=== PATIENT | male | born 1925 | race Caucasian/White ===

== ENCOUNTER 2016-10-15 16:05 | Inpatient (IN) | payer OTHER ==
[~2016-10-15] VITALS: Ht 167.6 cm; Wt 85.0 kg
[2016-10-15 16:22] LABS: EOSINOPHIL (%) 0 % (0-5); HEMATOCRIT 47.3 % (38.0-50.0); IMMATURE GRANULOCYTE (%) 0.9 % (0.0-0.7); IMMATURE GRANULOCYTE COUNT 0.2 K/uL; INSTRUMENT ABS NEUTROPHIL CT 13.8 K/uL; LYMPHOCYTE COUNT 1.1 K/uL (1.0-2.8); MCH 33.3 PG (29.0-34.0); MCV 97.7 FL (86-99); MEAN PLAT.VOLUME 10.4 uM^3 (9.0-12.4); MONOCYTE (%) 10.2 % (3-12); MONOCYTE COUNT 1.7 K/uL (0-0.8); NEUTROPHIL (%) 82.4 % (45-76); NEUTROPHIL COUNT 13.8 K/uL (1.8-6.4); PLATELET COUNT 147 K/uL (156-360); RBC DIS.WIDTH-CV 13.2 % (11.8-14.6); RBC DIS.WIDTH-SD 47.5 % (39-53); RED BLOOD COUNT 4.84 M/uL (4.00-5.50); WHITE BLOOD COUNT 16.7 K/uL (4.1-10.2)
[2016-10-15 16:32] LABS: AMYLASE 21 IU/L (1-118); CHLORIDE 100 mEq/L (99-109); POTASSIUM 3.6 mEq/L (3.7-5.4); SODIUM 140 mEq/L (136-147)
[2016-10-15 16:34] LABS: GLUCOSE 206 mg/dL (70-99)
[2016-10-15 16:35] LABS: ANION GAP 13 MEQ/L (2-14)
[2016-10-15 16:37] LABS: SERUM ETHYL ALCOHOL < 10 mg/dL
[2016-10-15 16:38] LABS: GFR ESTIMATE (CALCULATED) 38 mL/min/; UREA NITROGEN (BUN) 34 mg/dL (9-23)
[2016-10-15 16:41] LABS: LIPASE 9 U/L (1.0-51.0)
[2016-10-15] MEDS ORDERED: FUROSEMIDE40 MG PO (17:41)
[2016-10-15] MEDS ORDERED: WARFARIN SODIUM2 MG PO (17:41)
[2016-10-15] MEDS ORDERED: SIMVASTATIN40 MG PO (17:42)
[2016-10-15] MEDS ORDERED: AMIODARONE HCL200 MG PO (17:42)
[2016-10-15] MEDS ORDERED: ASPIR 8181 M1 PO (17:42)
[2016-10-15] MEDS ORDERED: WARFARIN SODIUM1 MG PO (17:42)
[2016-10-15] MEDS ORDERED: METOPROLOL SUCC25 MG PO (17:42)
[2016-10-15] MEDS ORDERED: GLIPIZIDE XL10 MG PO (17:42)
[2016-10-15 19:00] LABS: INTER. NORMALIZED RATIO 3.2; PROTHROMBIN TIME 36.6 SEC (10.2-12.9)
[2016-10-15 19:17] LABS: TROP-I INTERPRETATION NEGATIVE; TROPONIN-I 0.07 ng/mL (0.0-0.30)
[2016-10-15] MEDS ORDERED: FIBER THERAPY0.52 GM PO (19:22)
[2016-10-15 22:19] VITALS: BP 136/64
[2016-10-15 23:10] LABS: TROP-I INTERPRETATION NEGATIVE; TROPONIN-I 0.18 ng/mL (0.0-0.30)
[2016-10-15 23:48] VITALS: BP 123/62
[2016-10-16 04:29] VITALS: BP 147/72
[2016-10-16 06:44] LABS: HEMATOCRIT 38.5 % (38.0-50.0); MCH 32.8 PG (29.0-34.0); MCV 99.5 FL (86-99); MEAN PLAT.VOLUME 10.5 uM^3 (9.0-12.4); PLATELET COUNT 127 K/uL (156-360); RBC DIS.WIDTH-CV 13.6 % (11.8-14.6); WHITE BLOOD COUNT 13.5 K/uL (4.1-10.2)
[2016-10-16 07:12] LABS: RED BLOOD COUNT 3.87 M/uL (4.00-5.50)
[2016-10-16 07:31] LABS: ANION GAP 10 MEQ/L (2-14); CHLORIDE 104 MEQ/L (99-109); GFR ESTIMATE (CALCULATED) 51 mL/min/; GLUCOSE 139 mg/dL (70-99); POTASSIUM 3.8 MEQ/L (3.7-5.4); SAMPLE HEMOLYSIS CHECK 0; SAMPLE ICTERIC CHECK 0; SAMPLE LIPEMIA CHECK 0; SODIUM 143 MEQ/L (136-147); UREA NITROGEN (BUN) 34 mg/dL (9-23)
[2016-10-16 08:20] VITALS: BP 139/65
[2016-10-16 11:47] LABS: POINT-OF-CARE METER ID UU14117124
[2016-10-16 12:30] VITALS: BP 121/58
[2016-10-16 16:30] VITALS: BP 139/65
[2016-10-16 17:03] LABS: POINT-OF-CARE METER ID UU14117124
[2016-10-16 20:08] VITALS: BP 146/67
[2016-10-16 21:33] LABS: POINT-OF-CARE METER ID UU14117124
[2016-10-16 23:16] LABS: TROP-I INTERPRETATION NEGATIVE; TROPONIN-I 0.07 ng/mL (0.0-0.30)
[2016-10-17] VITALS (7 sets, daily range): BP systolic 109–181; BP diastolic 64–86
[2016-10-17 06:51] LABS: POINT-OF-CARE METER ID UU14117124
[2016-10-17 10:08] LABS: MCH 33.1 PG (29.0-34.0); MCHC 33.2 G/DL (30.0-36.0); MCV 99.7 FL (86-99); MEAN PLAT.VOLUME 10.5 uM^3 (9.0-12.4); PLATELET COUNT 120 K/uL (156-360); RBC DIS.WIDTH-CV 13.3 % (11.8-14.6); RBC DIS.WIDTH-SD 48.4 % (39-53); RED BLOOD COUNT 3.41 M/uL (4.00-5.50); WHITE BLOOD COUNT 10.6 K/uL (4.1-10.2)
[2016-10-17 10:35] LABS: ANION GAP 4 MEQ/L (2-14); CHLORIDE 106 MEQ/L (99-109); Estimated Average Glucose 120 mg/dL (70-123); GFR ESTIMATE (CALCULATED) > 59 mL/min/; GLUCOSE 116 mg/dL (70-99); HEMOGLOBIN A1c (GLYCOHEMOGLOB) 5.8 % HGB (Below 5.7); POTASSIUM 3.8 MEQ/L (3.7-5.4); SAMPLE HEMOLYSIS CHECK 0; SAMPLE ICTERIC CHECK 0; SAMPLE LIPEMIA CHECK 0; SODIUM 142 MEQ/L (136-147); UREA NITROGEN (BUN) 27 mg/dL (9-23)
[2016-10-17 11:55] LABS: POINT-OF-CARE METER ID UU14117124
[2016-10-17 17:09] LABS: POINT-OF-CARE METER ID UU14208753
[2016-10-17 21:50] LABS: POINT-OF-CARE METER ID UU14208753
[2016-10-18 03:57] VITALS: BP 179/83
[2016-10-18 06:33] LABS: POINT-OF-CARE METER ID UU14208753
[2016-10-18 06:40] LABS: HEMATOCRIT 33.7 % (38.0-50.0); MCH 33.9 PG (29.0-34.0); MCHC 34.4 G/DL (30.0-36.0); MCV 98.5 FL (86-99); MEAN PLAT.VOLUME 10.4 uM^3 (9.0-12.4); PLATELET COUNT 135 K/uL (156-360); RBC DIS.WIDTH-CV 13.2 % (11.8-14.6); RBC DIS.WIDTH-SD 47.4 % (39-53); RED BLOOD COUNT 3.42 M/uL (4.00-5.50)
[2016-10-18 07:07] LABS: ANION GAP 8 MEQ/L (2-14); CHLORIDE 106 MEQ/L (99-109); GFR ESTIMATE (CALCULATED) > 59 mL/min/; GLUCOSE 121 mg/dL (70-99); SAMPLE HEMOLYSIS CHECK 0; SAMPLE ICTERIC CHECK 0; SAMPLE LIPEMIA CHECK 0; SODIUM 141 MEQ/L (136-147); UREA NITROGEN (BUN) 25 mg/dL (9-23)
[2016-10-18 08:00] VITALS: BP 194/96
[2016-10-18 11:54] LABS: POINT-OF-CARE METER ID UU14117124
[2016-10-18 12:11] VITALS: BP 132/65
[2016-10-18 15:36] VITALS: BP 148/69
[2016-10-18 19:20] VITALS: BP 114/54
[2016-10-18 23:20] VITALS: BP 111/51
[2016-10-19 02:50] VITALS: BP 119/56
[2016-10-19 06:01] LABS: POINT-OF-CARE METER ID UU14117124
[2016-10-19 08:16] VITALS: BP 122/61
[2016-10-19] MEDS ORDERED: NIFEDIPINE20 MG PO (10:00)
[2016-10-19] MEDS ORDERED: ERGOCALCIF50000 UNIT PO (10:00)
[2016-10-19] MEDS ORDERED: CYANOCOBAL1000 MCG/2 SC (10:01)
[2016-10-19] MEDS ORDERED: CYANOCOBALAM1000 MCG PO (10:02)
[2016-10-19] MEDS ORDERED: FUROSEMIDE40 MG PO (10:03)
[2016-10-19 11:00] VITALS: BP 115/55
== END 2016-10-19 14:33 | DRG 133 ==
LOC: TRA 16:05 → EDOF 20:07 → ENRESERV 20:09 → CANRESERV 20:09 → ENRESERV 20:22 → 3EAST 21:56 → ENPENDDIS 10-19 → 3EAST 10-19 14:33
PROVIDERS: Emergency Medicine; Hospitalist
PROC: 09QKXZZ Repair Nasal Mucosa and Soft Tissue, External Approach (ICD-10-PCS; principal; 2016-10-15)
DX: S02.2XXA Fracture of nasal bones, initial encounter for closed fracture (principal); W19.XXXA Unspecified fall, initial encounter; Y92.019 Unspecified place in single-family (private) house as the place of occurrence of the external cause; F03.90 Unspecified dementia, unspecified severity, without behavioral disturbance, psychotic disturbance, mood disturbance, and anxiety; I25.10 Atherosclerotic heart disease of native coronary artery without angina pectoris; Z95.5 Presence of coronary angioplasty implant and graft; E78.5 Hyperlipidemia, unspecified; Z79.01 Long term (current) use of anticoagulants; N17.9 Acute kidney failure, unspecified; I35.0 Nonrheumatic aortic (valve) stenosis; I10 Essential (primary) hypertension; I49.3 Ventricular premature depolarization; R09.02 Hypoxemia; D68.32 Hemorrhagic disorder due to extrinsic circulating anticoagulants; T45.515A Adverse effect of anticoagulants, initial encounter; I48.0 Paroxysmal atrial fibrillation; R55 Syncope and collapse; S01.21XA Laceration without foreign body of nose, initial encounter; S00.03XA Contusion of scalp, initial encounter; E11.9 Type 2 diabetes mellitus without complications
CPT/HCPCS: 70450; 70486; 71010; 71260; 72125; 73130; 80048; 81003; 82150; 82306; 82607; 82948; 83036; 83690; 83880; 84443; 84484; 85025; 85027; 85610; 85730; 86900; 86901; 92610 GN; 93005; 93306; 94799; 99281; 99285; G0378; G0480; G8978 GP CK; G8979 CJ; J1815; J3420; J7030; S0028